=== PATIENT | male | born 1985 | race Hispanic/Latino ===

== ENCOUNTER → 2018-02-03 | Outpatient (CLI) | payer SELFPAY | LOC: M LRY 11:38 | DX: R60.0 Localized edema (principal); W22.8XXA Striking against or struck by other objects, initial encounter; Y92.9 Unspecified place or not applicable | CPT/HCPCS: 73660 ==

== ENCOUNTER 2019-07-10 08:42 | Emergency (ER) | payer BC, OTHER ==
[~2019-07-10] VITALS: Ht 172.7 cm; Wt 92.6 kg
[2019-07-10] MEDS ORDERED: IBUP80TA PO (08:57)
[2019-07-10] MEDS ORDERED: AMOX875T2 PO (08:57)
--- NOTE | 2019-07-10 11:10 | REP ---
Clinical: Infection. Technique: AP and lateral views of the left foot. Findings: No acute fracture dislocation. Osseous structures, soft tissues and joint spaces appear normal. No subcutaneous emphysema or foreign body. Impression: Normal examination. Electronically Signed by Akbar Pitts MD 07/10/2019 11:02 A
[2019-07-10 11:13] LABS: BASO % 0.2 % (0.0-1.0); EOS # 0.1 10^3/uL (0.0-0.5); EOS % 0.5 % (0.0-3.0); HEMATOCRIT 43.3 % (42.0-52.0); HEMOGLOBIN 14.7 g/dl (13.5-17.5); LYMPH # 2.9 10^3/uL (1.5-5.0); LYMPH % 24.1 % (24.0-44.0); MEAN CORPUSCULAR HEMOGLOBIN 29.5 pg (27.0-33.0); MEAN CORPUSCULAR HGB CONC 33.9 g/dl (32.0-36.5); MEAN CORPUSCULAR VOLUME 86.8 fl (80.0-96.0); MONO % 8.1 % (0.0-5.0); NEUTROPHILS % 66.5 % (36.0-66.0); PLATELET COUNT, AUTOMATED 173 10^3/uL (150-450); RED BLOOD COUNT 4.99 10^6/uL (4.30-6.10)
[2019-07-10] MEDS ORDERED: CLEO300C2 PO (11:30)
[2019-07-10 11:50] VITALS: BP 140/77
== END 2019-07-10 12:09 | disposition home or self-care (01) ==
LOC: M ED 08:42
DX: L60.0 Ingrowing nail (principal)

== ENCOUNTER → 2021-09-29 | Outpatient (CLI) | payer BC ==
[~2021-09-29] MED LIST: AMOX875T2 PO; CLEO300C2 PO; IBUP80TA PO
== END ==
LOC: M LABSMTC 10:46
PROVIDERS: ATTEND Anesthesiology
DX: Z01.812 Encounter for preprocedural laboratory examination (principal); Z20.822 Contact with and (suspected) exposure to COVID-19

== ENCOUNTER 2021-10-04 06:00 | Day surgery (SDC) | payer OTHER ==
[~2021-10-04] VITALS: Ht 172.7 cm; Wt 98.9 kg
[~2021-10-04 06:00] MED LIST changes: +LIDOCAINE 1% MDV 20ML VIAL SQ PRN; +LR 1,000 ML IV ONE; +ceFAZolin SOD 2 GM in IV 1 EA IV ONE
[2021-10-04] MEDS ORDERED: BUPIVACAINE HCL 0.25% 30ML VIAL As Ordered ONE (07:09)
[2021-10-04] MEDS ORDERED: BACITRACIN OINTMENT 30GM TUBE As Ordered ONE (07:09)
[2021-10-04] MEDS ORDERED: propofoL 200 MG/20 ML VIAL As Ordered ONE (07:23)
[2021-10-04] MEDS ORDERED: ONDANSETRON 4MG/2ML VIAL As Ordered ONE (07:23)
[2021-10-04] MEDS ORDERED: dexameTHASONE 4 MG/ML 1ML VIAL (J1100 PER 1MG) As Ordered ONE (07:23)
[2021-10-04] MEDS ORDERED: LIDOCAINE 2% 100MG/5ML SDV (FOR ANES.) As Ordered ONE (07:23)
[2021-10-04] MEDS ORDERED: fentaNYL 100 MCG/2 ML INJECTION As Ordered ONE (07:24)
[2021-10-04] MEDS ORDERED: MIDAZOLAM INJ 2MG/2ML VIAL (J2250 PER 1MG) As Ordered ONE (07:24)
[2021-10-04] MEDS ORDERED: LIDOCAINE 5% OINT 30GM TUBE As Ordered ONE (07:33)
[2021-10-04] MEDS ORDERED: ACETAMINOPHEN 1000MG 100ML IV BTL (OFIRMEV) (J0131 PER 10MG) As Ordered ONE (08:06)
[2021-10-04] MEDS ORDERED: ONDANSETRON 4MG/2ML VIAL IV PRN (08:45)
[2021-10-04] MEDS ORDERED: fentaNYL 100 MCG/2 ML INJECTION IV PRN (08:45)
[2021-10-04] MEDS ORDERED: LR 1,000 ML IV SCH (08:45)
[2021-10-04] MEDS ORDERED: oxyCODONE 5MG TAB PO PRN (08:45)
[2021-10-04 10:05] VITALS: BP 131/59
[2021-10-04] MEDS ORDERED: OXYC1TAB23 PO (11:09)
== END 2021-10-04 10:13 | disposition home or self-care (01) ==
LOC: M SDC 06:00
PROVIDERS: ATTEND Orthopaedic Surgery Hand Surgery
DX: T84.84XA Pain due to internal orthopedic prosthetic devices, implants and grafts, initial encounter (principal); M79.644 Pain in right finger(s); Y79.8 Miscellaneous orthopedic devices associated with adverse incidents, not elsewhere classified; Y84.9 Medical procedure, unspecified as the cause of abnormal reaction of the patient, or of later complication, without mention of misadventure at the time of the procedure
CPT/HCPCS: 20680; J0131; J0690; J1100; J2250; J2405; J3010

== ENCOUNTER → 2021-10-11 | Outpatient (CLI) | payer OTHER ==
[~2021-10-11] MED LIST changes: -LIDOCAINE 1% MDV 20ML VIAL SQ PRN; -LR 1,000 ML IV ONE; +OXYC1TAB23 PO; -ceFAZolin SOD 2 GM in IV 1 EA IV ONE
== END ==
LOC: M SOG 09:09
PROVIDERS: ATTEND Physician Assistant
DX: M79.644 Pain in right finger(s) (principal)

== ENCOUNTER 2022-12-03 17:01 | Emergency (ER) | payer BC, OTHER ==
[~2022-12-03] VITALS: Ht 172.7 cm; Wt 93.6 kg
[2022-12-03 17:01] VITALS: BP 151/86; TEMP 97.7; O2SAT 99
[2022-12-03 18:58] LABS: RSV AMPLIFICATION NEGATIVE (NEGATIVE)
[2022-12-03] MEDS ORDERED: ISOVUE-370 76% 100ML VIAL As Ordered ONE (20:17)
[2022-12-03 20:20] LABS: BASO % 0.3 % (0.0-1.0); EOS # 0.1 10^3/uL (0.0-0.5); EOS % 0.3 % (0.0-3.0); HEMATOCRIT 44.5 % (42.0-52.0); HEMOGLOBIN 15.1 g/dl (13.5-17.5); LYMPH # 1.9 10^3/uL (1.5-5.0); LYMPH % 12.8 % (24.0-44.0); MEAN CORPUSCULAR HEMOGLOBIN 29.8 pg (27.0-33.0); MEAN CORPUSCULAR HGB CONC 33.9 g/dl (32.0-36.5); MEAN CORPUSCULAR VOLUME 87.8 fl (80.0-96.0); MONO # 1.2 10^3/uL (0.0-0.8); MONO % 8.4 % (2.0-8.0); NEUTROPHILS # 11.4 10^3/uL (1.5-8.5); NEUTROPHILS % 77.9 % (36.0-66.0); PLATELET COUNT, AUTOMATED 222 10^3/uL (150-450); RED BLOOD COUNT 5.07 10^6/uL (4.30-6.10); WHITE BLOOD COUNT 14.6 10^3/uL (4.0-10.0)
[2022-12-03] MEDS ORDERED: AMOX875T2 PO (21:27)
[2022-12-03] MEDS ORDERED: FLON1SPR NARES (21:29)
[2022-12-03] MEDS ORDERED: AUGMENTIN 875 MG TAB PO ONE (21:30)
== END 2022-12-03 21:42 | disposition home or self-care (01) ==
LOC: M ED 17:01
DX: J01.90 Acute sinusitis, unspecified (principal)
CPT/HCPCS: 70487; 80047; 85025; 87631; 87880; 99283; Q9967